=== PATIENT | female | born 1960 | race Caucasian/White ===

== ENCOUNTER 2021-07-01 09:22 | Outpatient (CLI) | payer OTHER, SELFPAY ==
--- NOTE | 2021-07-01 09:31 | MM_ITS ---
WS: [id number] Bilateral screening digital mammogram, 07/01/2021 Clinical Data: SCREENING Comparison: 07/13/2011, 12/31/2009, 06/20/2007 Findings: The breast parenchymal pattern shows heterogeneous density. No spiculated masses or clustered calcif ications are seen. There are no secondary signs of carcinoma. There are lymph nodes in both axilla. MM/[place] [id number] Impression: 1. Negative bilateral mammogram unchanged. 2. Recommend annual screening mammograms. BIRADS: 1-Negative FOLLOW UP: 1 Year Follow-up The CAD shellfish checker was used.
== END 2021-07-01 09:23 | disposition home or self-care (01) ==
LOC: RADSHAW 09:30
PROVIDERS: PCP Nurse Practitioner Family; Visit Provider Nurse Practitioner Family
DX: Z12.31 Encounter for screening mammogram for malignant neoplasm of breast (principal)
CPT/HCPCS: 77067

== ENCOUNTER 2022-07-29 20:00 | Outpatient (CLI) | payer SELFPAY | END 2022-07-29 20:01 | disposition home or self-care (01) | LOC: SLEEP 07-30 06:42 | PROVIDERS: PCP Nurse Practitioner Family; Visit Provider Nurse Practitioner Family | DX: G47.10 Hypersomnia, unspecified (principal); R06.83 Snoring; R53.83 Other fatigue; R09.02 Hypoxemia | CPT/HCPCS: 95810 ==

== ENCOUNTER 2022-08-06 08:23 | Outpatient (CLI) | payer SELFPAY ==
--- NOTE | 2022-08-06 08:39 | CT_ITS ---
WS: [id number] LDCT LUNG CANCER SCREENING HISTORY: HX OF TOBACCO USE TECHNIQUE: Axial imaging performed from the apices to 1 cm below the costophrenic angles. Coronal and sagittal reformats are submitted with axial MIP series. All CT scans at [facility] use at least one of these dose optimization techniques: automated exposure control; mA and/or kV adjustment per patient size (includes targeted exams where dose is matched to clinical indication); or iterativ e reconstruction. DLP: 81.57 mGy.cm DIvol: Mean CTDIvol: 1.60 (mGy) COMPARISON: None available. Diagnostic quality: Satisfactory Lung Nodules: No pulmonary nodule or endobronchial lesions. Lungs: Hyperinflated lungs with lucent areas and mild groundglass attenuation. Changes are probably d ue to air trapping. Heart: Normal size heart. No pericardial effusion. Other findings: Atherosclerosis aorta. Normal size aorta. Moderate hiatal hernia. No adrenal mass. Pr ior cholecystectomy. CT/CT lung screening [id number] IMPRESSION: LUNG-RADS: 1-Negative FOLLOW UP: 12 Month: Continue annual screening with LDCT OTHER FINDINGS (S MODIFIER): None.
== END 2022-08-06 08:24 | disposition home or self-care (01) ==
LOC: RAD 08:29
PROVIDERS: PCP Nurse Practitioner Family; Visit Provider Nurse Practitioner Family
DX: Z12.2 Encounter for screening for malignant neoplasm of respiratory organs (principal); F17.200 Nicotine dependence, unspecified, uncomplicated
CPT/HCPCS: 71271

== ENCOUNTER 2023-12-21 10:28 | Outpatient (CLI) | payer MEDICARE, SELFPAY ==
--- NOTE | 2023-12-21 10:30 | MM_ITS ---
WS: [id number] BILATERAL 3D TOMOSYNTHESIS DIGITAL SCREENING MAMMOGRAPHY WITH CAD CLINICAL INFORMATION: SCREENING HISTORY: Screening mammogram. No current complaints. COMPARISON: 2020 TECHNIQUE: Bilateral CC and MLO views. FINDINGS: The breasts are composed of heterogeneous fibroglandular density tissue, which can limit the detectio n of small underlying mass lesions. No suspicious mass, asymmetry, calcifications, or architectural d istortion. No evidence of malignancy. Incidental punctate and lucent centered calcifications. Stable intramammary lymph node RIGHT breast. Vascular calcification. IMPRESSION: MM/[place] [id number] BI-RADS: 2-Benign FOLLOW UP: 1 Year Follow-up Recommend return to annual screening mammography.
== END 2023-12-21 10:29 | disposition home or self-care (01) ==
LOC: MOBLMAM 10:35
PROVIDERS: PCP Nurse Practitioner Family; Visit Provider Nurse Practitioner Family
DX: Z12.31 Encounter for screening mammogram for malignant neoplasm of breast (principal)
CPT/HCPCS: 77063; 77067

== ENCOUNTER 2023-12-31 09:33 | Outpatient (CLI) | payer MEDICARE, SELFPAY ==
--- NOTE | 2023-12-31 09:42 | CT_ITS ---
WS: [id number] LDCT LUNG CANCER SCREENING TECHNIQUE: Noncontrast CT of the chest with coronal and sagittal reformatted images. CLINICAL INFORMATION: NICOTINE DEPENDENCE, CIGARETTES COMPARISON: 2021 DLP: 128.21 mGy.cm DIvol: Mean CTDIvol: 1.60 (mGy),Mean CTDIvol: 1.60 (mGy) All CT scans at [facility] use at least one of these dose optimization techniques: automat ed exposure control; mA and/or kV adjustment per patient size (includes targeted exams where dose is matched to clinical indication); or iterative reconstruction. FINDINGS: Hyperinflation. Advanced chronic emphysematous changes. No new suspicious pulmonary parenchymal abno rmalities. A few tiny scattered subpleural micronodules. Normal caliber thoracic aorta. Aortic calcif ication. Coronary calcification. No mediastinal or hilar lymphadenopathy. No axillary lymphadenopathy . Mild thoracic kyphosis. Cholecystectomy. Moderate esophageal hiatal hernia. Adrenal glands are normal. Fatty atrophy of the p ancreas. IMPRESSION: CT/CT lung screening [id number] LUNG-RADS: 2-Benign Appearance or Behavior FOLLOW UP: 12 Month: Continue annual screening with LDCT
== END 2023-12-31 09:34 | disposition home or self-care (01) ==
LOC: RAD 09:33
PROVIDERS: PCP Nurse Practitioner Family; Visit Provider Nurse Practitioner Family
DX: F17.210 Nicotine dependence, cigarettes, uncomplicated (principal); Z12.2 Encounter for screening for malignant neoplasm of respiratory organs
CPT/HCPCS: 71271

== ENCOUNTER 2024-12-21 07:56 | Day surgery (SDC) | payer MEDICARE, SELFPAY ==
[2024-12-21 08:18] VITALS: BP 102/73; PULSE 104; RESP 18; TEMP 36.2; O2SAT 91; BMI 27.3
--- NOTE | 2024-12-21 08:24 | W.PM.OPSUD ---
Surgery/Procedure H&P Update DATE OF PROCEDURE: December 21, 2024 DATE H&P PERFORMED: 11/28/24 H&P UPDATE INFORMATION: I have reviewed H&P completed within last 30 days, I have examined patient prior to procedure, No changes to prior documentation, Changes to prior documentation as noted here and Risks and benefits of the procedure reviewed PLANNED PROCEDURE: Operation Date: 12/21/24 09:15 Proposed Procedures p Colonoscopy 92356 G0105 K52.9 Z87.19(Not Applicable) - Surendra Barton MD
[2024-12-21] MEDS: sodium chloride 0.9% 1,000 ML 30 ML IV (08:26)
--- NOTE | 2024-12-21 08:52 | ANES.PREANE2 ---
Pre-Anesthetic Assessment Height/Weight: Height 1.7 m Weight 79.379 kg Temp Pulse Resp BP Pulse Ox O2 Del Method 97.2 F L 104 H 18 102/73 91 Room Air 12/21/24 08:18 12/21/24 08:18 12/21/24 08:18 12/21/24 08:18 12/21/24 08:18 12/21/24 08:18 Operation Date: 12/21/24 09:15 Proposed Procedures p Colonoscopy 14423 G0105 K52.9 Z87.19(Not Applicable) - Surendra Barton MD Familial anesthetic complications: none Was Beta Emily taken within 24 hours: N/A Was Clonidine taken within 24 hours: N/A Last intake: Intake Last Liquid Date 12/20/24 Last Liquid Time 23:00 Last Solid Date 12/19/24 Last Solid Time 18:00 Social Tobacco 1-1.5 pack(s) per day 50 pack years Exam alert, oriented x 3 and clear to auscultation bilaterally Airway Mallampati: Class II Dentition: false History/ROS No significant history except as noted Pulmonary None reported CV/HEM None reported None reported Hepatic None reported GI None reported Metabolic Thyroid Disease [facility] [place] None reported Neuropsych None reported Anesthetic Plan ASA status: 3 Anesthesia: Anesthesia Evaluation and MAC Risk of > 500 ml blood loss (7ml/kg in children): No Medications/Allergies Home Medications ?Medication ?Instructions ?Recorded ?Confirmed ?Last Taken ?Type duloxetine 60 mg capsule,delayed 120 mg PO DAILY 11/18/21 12/21/24 12/20/24 History release levothyroxine 88 mcg capsule 88 mcg PO DAILY 11/18/21 12/21/24 12/21/24 History tolterodine 2 mg tablet 2 mg PO BID 11/18/21 12/21/24 12/21/24 History cholecalciferol (vitamin D3) 25 25 mcg PO DAILY 11/28/24 12/21/24 12/20/24 History mcg (1,000 unit) capsule lactobacillus combination no.9 4 4,000 mmu cells PO DAILY 11/28/24 12/21/24 12/20/24 History billion cell capsule (Adult 50 Plus Probiotic) magnesium 250 mg tablet 150 mg PO DAILY 12/18/24 12/21/24 12/20/24 History omeprazole 20 mg capsule,delayed 20 mg PO DAILY 12/18/24 12/21/24 12/21/24 History release Allergies Allergy/AdvReac Type Severity Reaction Status Date / Time Sulfa (Sulfonamide Allergy Severe ALGY-Anaphy Verified 12/21/24 08:11 Antibiotics) laxis sumatriptan (From Imitrex) Allergy Severe ALGY-Anaphy Verified 12/21/24 08:11 laxis meperidine (From Demerol) Allergy Mild ADV-Weaknes Verified 12/21/24 08:11 s oxybutynin Allergy Unknown Unknown Verified 12/21/24 08:11 Current Medications Generic Name Dose Route Start Last Admin Trade Name Freq PRN Reason Stop Dose Admin Sodium Chloride 1,000 mls @ 30 mls/hr 12/21/24 08:15 12/21/24 08:26 Sodium Chloride 0.9% IV 30 mls/hr .Q24H GIOVANY Administration PFSH Anesthesia Family History (Updated 11/28/24 @ 10:32 by FAWN Nichols) Mother Hypertension Father Hypertension Social History Smoking and tobacco/nicotine status: current every day tobacco/nicotine user Data Anesthesia Cardiac Studies: No Data to Display
[2024-12-21 10:06] VITALS: BP 111/84; PULSE 85; RESP 16; TEMP 36.4; O2SAT 98
[2024-12-21 10:30] VITALS: BP 125/88; PULSE 81; RESP 18; O2SAT 95
--- NOTE | 2024-12-21 10:35 | ANE.PACU2 ---
Inpatient post-anesthesia follow up: Airway intact: Yes Vital signs: Temperature 97.6 F Pulse Rate 81 Respiratory Rate 18 Blood Pressure 125/88 Pulse Oximetry 95 Oxygen Delivery Me thod Room Air Oxygen Flow Rate Fraction of Inspir ed Oxygen Hydration adequate: Yes Nausea and vomiting: No Pain level: 1 Mental status: Baseline
== END 2024-12-21 10:35 | disposition home or self-care (01) ==
PROVIDERS: PCP Nurse Practitioner Family; Visit Provider Surgery
PROC: 0DJD8ZZ Inspection of Lower Intestinal Tract, Via Natural or Artificial Opening Endoscopic (ICD-10-PCS; CPT 45378; principal; 2024-12-21 09:15)
DX: Z12.11 Encounter for screening for malignant neoplasm of colon (principal); D12.4 Benign neoplasm of descending colon; D12.5 Benign neoplasm of sigmoid colon; K62.1 Rectal polyp; K52.9 Noninfective gastroenteritis and colitis, unspecified; Z79.899 Other long term (current) drug therapy; Z79.890 Hormone replacement therapy; Z88.2 Allergy status to sulfonamides; Z88.8 Allergy status to other drugs, medicaments and biological substances; F17.200 Nicotine dependence, unspecified, uncomplicated
CPT/HCPCS: 45380; 45385; 88305; J2704; J7030; J9999

== ENCOUNTER 2025-01-02 13:20 | Outpatient (CLI) | payer MEDICARE, SELFPAY | END 2025-01-02 13:21 | disposition home or self-care (01) | LOC: MOBLMAM 01-03 06:13 | PROVIDERS: PCP Nurse Practitioner Family; Visit Provider Nurse Practitioner Family | DX: Z09 Encounter for follow-up examination after completed treatment for conditions other than malignant neoplasm (principal) | CPT/HCPCS: 99213 ==

== ENCOUNTER 2025-02-06 10:52 | Outpatient (CLI) | payer MEDICARE, SELFPAY ==
--- NOTE | 2025-02-06 10:20 | MM_ITS ---
WS: [id number] BILATERAL 3D TOMOSYNTHESIS DIGITAL SCREENING MAMMOGRAPHY WITH CAD CLINICAL INFORMATION: SCREENING HISTORY: Screening mammogram. No current complaints. COMPARISON: 2023 TECHNIQUE: Bilateral CC and MLO views. FINDINGS: The breasts are composed of heterogeneous fibroglandular density tissue, which can limit the detection of small underlying mass lesions. No suspicious mass, asymmetry, calcifications, or architectural distortion. No evidence of malignancy. Incidental intramammary lymph node RIGHT breast. Incidental punctate and lucent centered calcifications. MM/MM [facility] tomosynthesis [id number] IMPRESSION: DENSITY: The breasts are heterogeneously dense, which may obscure small masses. BI-RADS: 2 - Benign FOLLOW UP: 1 Year Follow-up Recommend return to annual screening mammography.
== END 2025-02-06 10:53 | disposition home or self-care (01) ==
LOC: MOBLMAM 10:52
PROVIDERS: PCP Nurse Practitioner Family; Visit Provider Nurse Practitioner Family
DX: Z12.31 Encounter for screening mammogram for malignant neoplasm of breast (principal); R92.333 Mammographic heterogeneous density, bilateral breasts; R59.0 Localized enlarged lymph nodes; R92.1 Mammographic calcification found on diagnostic imaging of breast
CPT/HCPCS: 77063; 77067

== ENCOUNTER 2025-03-19 13:16 | Outpatient (CLI) | payer MEDICARE, SELFPAY ==
--- NOTE | 2025-03-19 13:42 | CT_ITS ---
WS: [id number] LDCT LUNG CANCER SCREENING HISTORY: NICOTINE DEPENDENCE,CIGARETTES TECHNIQUE: Axial imaging performed from the apices to 1 cm below the costophrenic angles. Coronal and sagittal reformats are submitted with axial MIP series. All CT scans at [facility] use at least one of these dose optimization techniques: automated exposure control; mA and/or kV adjustment per patient size (includes targeted exams where dose is matched to clinical indication); or iterative reconstruction. DLP: 59.39 mGy.cm DIvol: Mean CTDIvol: 1.10 (mGy) COMPARISON: 12/31/2023 Diagnostic quality: Satisfactory Lungs: Marked pulmonary hyperinflation. Advanced centrilobular emphysema. Hazy attenuation throughout both lungs is related to smoking history. Curvilinear areas of scarring and atelectasis at the apices. Mosaic attenuation and evidence for air trapping. There are a few scattered inflammatory type nodules. No new or enlarging nodules. No mass. Heart: Normal size heart with no pericardial effusion.. Other findings: Mild atherosclerosis aorta. Normal size aorta. Normal size pulmonary artery. No adenopathy. Large calcification LEFT thyroid lobe. Large hiatal hernia. Prior cholecystectomy. LEFT adrenal hyperplasia. Mild atrophy pancreas. Increased thoracic kyphosis. CT/CT lung screening [id number] IMPRESSION: LUNG-RADS: 2-Benign Appearance or Behavior FOLLOW UP: 12 Month: Continue annual screening with LDCT OTHER FINDINGS (S MODIFIER): None.
--- NOTE | 2025-03-19 13:44 | XR_ITS ---
WS: [id number] SCREENING DEXA SCAN [place] CLINICAL INFORMATION: POSTMENOPAUSAL STATUS/OSTEOPOROSIS COMPARISON: None. FINDINGS: The L1-L4 bone mineral density measures 0.939 g/cm2. This corresponds to a T score score of -2.0 and Z score of -0.8. Left femoral neck bone mineral density measures 0.659 g/cm2. This corresponds to a T score of -2.8 and Z score of -1.8. Right femoral neck bone mineral density measures 0.650 g/cm2. This corresponds to a T score -2.8of and Z score of -1.9. Mean femoral neck bone mineral density measures 0.655 g/cm2. This corresponds to a T score of -2.8 and Z score of -1.8. XR/XR DEXA axial skeleton* [id number] IMPRESSION: Osteopenia lumbar spine. Osteoporosis femoral necks. Patient's FRAX calculated 10 year probability for major osteoporotic fracture i s 18.7% and osteoporotic hip fracture is 8.0%.
== END 2025-03-19 13:17 | disposition home or self-care (01) ==
PROVIDERS: PCP Family Medicine; Visit Provider Family Medicine
DX: Z12.2 Encounter for screening for malignant neoplasm of respiratory organs (principal); F17.210 Nicotine dependence, cigarettes, uncomplicated; M81.0 Age-related osteoporosis without current pathological fracture
CPT/HCPCS: 71271; 77080